=== PATIENT | female | born 1955 | race Caucasian/White ===

== ENCOUNTER 2020-05-26 12:58 | Emergency (ER) | payer BC, SELFPAY ==
[2020-05-26 13:13] VITALS: BP 145/79; PULSE 89; RESP 16; TEMP 36.6; O2SAT 98
--- NOTE | 2020-05-26 13:21 | ED_ITS ---
HPI - Skin/Abscess/Foreign Bdy General Chief complaint: Skin/Abscess/Foreign Body Stated complaint: rash Related Data Home Medications Medication Instructions Recorded Confirmed atorvastatin [Lipitor] 10 mg PO HS 09/14/19 09/14/19 hydroxyzine pamoate 05/26/20 naproxen 05/26/20 oxycodone-acetaminophen 05/26/20 Allergies Allergy/AdvReac Type Severity Reaction Status Date / Time No Known Allergies Allergy Verified 09/14/19 11:07 Review of Systems Review of Systems: Narrative: General/Constitutional: No weight loss,fever Eyes: N0: Redness,discharge Ears/Nose/Throat: No: Epistaxis,ear discharge Respiratory: Denies: Hemoptysis Gastrointestinal: No Vomiting, Bleeding-rectal Skin: No Lumps, REPORTS eruption Neurologic: No Focal Weakness,Sz Hematologic: Denies: Petechiae/Purpura Psychiatric: No: Suicida ideationl All Other Systems: Reviewed and Negative [facility] Past Medical History Medical History (Updated 05/26/20 @ 13:21 by Ran Bustos MD) Healthy adult Surgical History Surgical History (Updated 09/14/19 @ 11:07 by Lor Goodwin) No pertinent past surgical history Social History Social History (Updated 09/14/19 @ 11:58 by Lor Goodwin) Smoking status: Never smoker Alcohol intake: current Comments At time of signature, agree with nursing past medical, surgical, social and family history. There is no relevant family history pertinent to the presenting complaint Course Vital Signs Vital signs: Vital Signs Temperature 97.9 F 05/26/20 13:13 Pulse Rate 89 05/26/20 13:13 Respiratory Rate 16 05/26/20 13:13 Blood Pressure 145/79 H 05/26/20 13:13 Pulse Oximetry 98 05/26/20 13:13 Temperature 97.9 F 05/26/20 13:13 Pulse Rate 89 05/26/20 13:13 Respiratory Rate 16 05/26/20 13:13 Blood Pressure 145/79 H 05/26/20 13:13 Pulse Oximetry 98 05/26/20 13:13 Discharge Plan Discharge Clinical Impression: Urticaria Patient Disposition: Home, Self-Care Condition: Stable Instructions: Urticaria (ED) Additional Instructions: Stop current, recent new pain meds-a substitute will be provided. Consider also stopping hydroxyzine [Benadryl can be substituted] If no improvement consider elimination diet See your PMD in follow-up, including for blood pressure Prescriptions: New prednisone 20 mg tablet 60 mg PO DAILY Qty: 15 RF: 0 tramadol 50 mg tablet 50 mg PO Q6H PRN (Reason: pain) Qty: 15 RF: 1 No Action atorvastatin [Lipitor] 10 mg Tablet 10 mg PO HS RF: 0 oxycodone-acetaminophen 5-325 mg tablet RF: 0 naproxen 500 mg tablet RF: 0 hydroxyzine pamoate 25 mg capsule RF: 0 Follow-up/Referrals: PHYSICIAN NOT ON STAFF,NONSTAFF [Primary Care Provider] -
== END 2020-05-26 13:30 | disposition home or self-care (01) ==
PROVIDERS: Emergency Provider Emergency Medicine
DX: L50.9 Urticaria, unspecified (principal); E78.00 Pure hypercholesterolemia, unspecified
CPT/HCPCS: 99213; G0463